=== PATIENT | male | born 1975 | race Caucasian/White ===

== ENCOUNTER 2016-05-16 16:57 | Emergency (ER) | payer SELFPAY ==
[2016-05-16 17:10] VITALS: BP 140/80
[2016-05-16] MEDS ORDERED: Ketorolac 60 MG/2 ML SDV IM ONE (18:09)
--- NOTE | 2016-05-16 18:30 | EDM.PDOC ---
ED HPI RENAL/ - General Chief Complaint: Genitourinary Problem Stated Complaint: BACK PAIN Time Seen by Provider: 05/16/16 17:10 Source of Information: Reports: Patient History Limitations: Reports: No limitations - History of Present Illness INITIAL COMMENTS - FREE TEXT/NARRATIVE: Presents reporting a him a 48 hour history of right flank pain which he reports is a "soreness" and is exacerbated by twisting or bending movements. He denies fever, dysuria or history of back problems. No known injury. He did have a kidney stone about 20 years ago although this pain does not seem similar. - Related Data Allergies/ADRs: Allergies Allergy/AdvReac Type Severity Reaction Status Date / Time No Known Allergies Allergy Verified 05/16/16 17:07 Home Meds: Home Meds Diclofenac Sodium [IJD: Diclofenac Sodium] 75 mg PO .TWICE DAILY W MEALS #20 tab.ec 05/16/16 [Rx] Past Medical History HEENT History: Reports: None Cardiovascular History: Reports: None Respiratory History: Reports: None Gastrointestinal History: Reports: None Genitourinary History: Reports: None Musculoskeletal History: Reports: None Neurological History: Reports: None Psychiatric History: Reports: None Endocrine/Metabolic History: Reports: None Hematologic History: Reports: None Immunologic History: Reports: None Oncologic (Cancer) History: Reports: None Dermatologic History: Reports: None - Infectious Disease History Infectious Disease History: Reports: None - Past Surgical History GI Surgical History: Reports: Appendectomy Social & Family History - Family History Family Medical History: Noncontributory - Tobacco Use Smoking Status *Q: Current Every Day Smoker Years of Tobacco use: 15 Packs/Tins Daily: 0.5 - Caffeine Use Caffeine Use: Reports: Coffee, Soda - Recreational Drug Use Recreational Drug Use: No ED ROS GENERAL - Review of Systems Review Of Systems: See Below ED EXAM, RENAL/ - Physical Exam Exam: See Below General Appearance: alert, no apparent distress Ears: normal external exam Nose: normal inspection Throat/Mouth: Normal inspection Head: atraumatic, normocephalic Neck: normal inspection, full range of motion Respiratory/Chest: no respiratory distress, lungs clear, normal breath sounds Cardiovascular: normal peripheral pulses, regular rate, rhythm, no murmur GI/Abdominal: soft Back Exam: normal inspection, full range of motion. No: CVA tenderness (L), CVA tenderness (R), paraspinal tenderness, vertebral tenderness Extremities: normal inspection, normal range of motion Neurological: alert, oriented, no motor/sensory deficits Psychiatric: normal affect, normal mood Skin Exam: Warm, Dry, Intact, Normal color, No rash Lymphatic: no adenopathy Course - Vital Signs Last Recorded V/S: Last Vital Signs Temp 36.8 C 05/16/16 17:07 Pulse 96 05/16/16 17:07 Resp 16 05/16/16 17:07 BP 140/80 05/16/16 17:07 Pulse Ox 98 05/16/16 17:07 - Orders/Labs/Meds Labs: Laboratory Tests 05/16/16 Range/Units 17:15 Urine Color YELLOW Urine Appearance CLEAR Urine pH 6.0 (5.0-8.0) Ur Specific [place] 1.020 (1.001-1.035) Urine Protein NEGATIVE (NEGATIVE) mg/dL Urine Glucose (UA) NEGATIVE (NEGATIVE) mg/dL Urine Ketones NEGATIVE (NEGATIVE) mg/dL Urine Occult Blood NEGATIVE (NEGATIVE) Urine Nitrite NEGATIVE (NEGATIVE) Urine Bilirubin NEGATIVE (NEGATIVE) Urine Urobilinogen 0.2 (<2.0) EU/dL Ur Leukocyte Esterase NEGATIVE (NEGATIVE) Urine RBC 0-2 (0-2/HPF) Urine WBC 0-1 (0-5/HPF) Ur Epithelial Cells OCCASIONAL (NONE-FEW) Urine Bacteria RARE (NEGATIVE) Urine Mucus LIGHT (NONE-MOD) Meds: Medications Discontinued Medications Generic Name Dose Route Start Last Admin Trade Name Freq PRN Reason Stop Dose Admin Ketorolac Tromethamine 60 mg 05/16/16 18:09 05/16/16 18:17 Toradol IM 05/16/16 18:10 60 mg ONETIME ONE Administration Departure - Departure Time of Disposition: 18:30 Disposition: Home, Self-Care 01 Condition: good Clinical Impression: Muscle strain Referrals: PCP,None [Primary Care Provider] - [facility] [Outside] [facility] [Outside] Forms: ED Department Discharge Additional Instructions: 1. diclofenac 75 mg one twice daily as needed for flank pain 2. return promptly for fever, nausea and unable to keep fluids down, worsening or not improving symptoms 3. followup in primary care clinic
== END 2016-05-16 18:52 | disposition home or self-care (01) ==
LOC: MW.ED 16:57
DX: S39.012A Strain of muscle, fascia and tendon of lower back, initial encounter (principal); Z79.899 Other long term (current) drug therapy; F17.210 Nicotine dependence, cigarettes, uncomplicated; Z90.49 Acquired absence of other specified parts of digestive tract; X50.1XXA Overexertion from prolonged static or awkward postures, initial encounter
CPT/HCPCS: 81001; 96372; 99283; J1885

== ENCOUNTER 2017-05-11 19:46 | Emergency (ER) | payer OTHER ==
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
[2017-05-11 21:18] VITALS: BP 137/82
--- NOTE | 2017-05-12 09:46 | CR ---
EXAM DATE: 05/11/17 PATIENT'S AGE: 42 Patient: NOEMI MARTÍNEZ Facility: [place], [place] Site . Site : 1975 Study: XRay Pelvis [id number]/13/2018 8:37:06 PM Ordering Physician: Luis Armando Davison Final Report: INDICATION: Pain with no history of acute trauma. History of bilateral pelvic fractures TECHNIQUE: Two views of the pelvis COMPARISON: None FINDINGS: Bones: Alignment is normal. No the fractures appear remote bilateral inferior pubic ramus fractures. Joint spaces: Unremarkable. Soft tissues: Unremarkable. IMPRESSION: Remote bilateral inferior pubic rami fractures otherwise unremarkable two-view pelvis. Dictated by Ugo Bhatt MD @ 05/11/2017 8:48:01 PM Dictated by: Ugo Bhatt MD @ 05/11/2017 20:48:11 (Electronic Signature) Report Signed by Proxy. ROMINA
== END 2017-05-11 21:14 | disposition home or self-care (01) ==
LOC: MW.ED 19:46
DX: M25.551 Pain in right hip (principal); M54.31 Sciatica, right side; F17.210 Nicotine dependence, cigarettes, uncomplicated
CPT/HCPCS: 72170; 96372; 99283; J2360; 99284

== ENCOUNTER 2017-05-18 18:42 | Emergency (ER) | payer OTHER ==
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
[2017-05-18] MEDS ORDERED: Levofloxacin/Dextrose 5%-Water 750 MG in Premix Bag 1 BAG IV ONE (19:08)
[2017-05-18] MEDS ORDERED: Ketorolac 60 MG/2 ML SDV IM ONE (20:02)
[2017-05-18 20:17] VITALS: BP 130/70
--- NOTE | 2017-05-19 10:37 | CR ---
EXAM DATE: 05/18/17 PATIENT'S AGE: 42 Patient: NOEMI MARTÍNEZ Facility: [place], [place] Site . Site : 1975 Study: XRay Chest ribs wo chest [id number]/20/2018 7:30:19 PM Ordering Physician: Doctor Morales Final Report: INDICATION: INDICATION:Fall TECHNIQUE: Right ribs 3 views. COMPARISON: None FINDINGS: Detailed oblique images of the right ribs demonstrate no fractures or bone lesions. Visualized portions of the right lung and pleural space are clear. IMPRESSION: Unremarkable right ribs. Dictated by Gretchen Villalpando MD @ May 18 2017 7:57PM (Electronic Signature) Report Signed by Proxy. ROMINA
== END 2017-05-18 20:13 | disposition home or self-care (01) ==
LOC: MW.ED 18:42
DX: S20.211A Contusion of right front wall of thorax, initial encounter (principal); F17.210 Nicotine dependence, cigarettes, uncomplicated; Z79.899 Other long term (current) drug therapy; W00.9XXA Unspecified fall due to ice and snow, initial encounter
CPT/HCPCS: 71100; 96372; 99284; J1885; 99283

== ENCOUNTER 2017-11-17 08:06 | Emergency (ER) | payer OTHER ==
--- NOTE | 2017-11-17 08:14 | EDM.PDOC ---
ED HPI GENERAL MEDICAL PROBLEM - General Chief Complaint: ENT Problem Stated Complaint: POSSIBLE BROKEN NOSE Time Seen by Provider: 11/17/17 08:14 Source of Information: Reports: Patient - History of Present Illness INITIAL COMMENTS - FREE TEXT/NARRATIVE: HISTORY AND PHYSICAL: History of present illness: [Patient was head butted by his below mass to service dog, this did not occur on aggression from the PET. The patient had a potato chip in his mouth and was going to feed the dog and the dog jumped up to get the chip and they struck nose is patient resulted in epistaxis and nasal bridge is tender he does have some small chip fractures on the distal nasal bones on x-ray No loss of consciousness no fever nausea vomiting chills sweats epistaxis has resolved ] Review of systems: As per history of present illness and below otherwise all systems reviewed and negative. Past medical history: As per history of present illness and as reviewed below otherwise noncontributory. Surgical history: As per history of present illness and as reviewed below otherwise noncontributory. Social history: No reported history of drug or alcohol abuse. Family history: As per history of present illness and as reviewed below otherwise noncontributory. Physical exam: HEENT: Atraumatic, normocephalic, pupils reactive, negative for conjunctival pallor or scleral icterus, mucous membranes moist, throat clear, neck supple, nontender, trachea midline. and in the nares no active bleeding tender over the nasal bridge no significant displacement Lungs: Clear to auscultation, breath sounds equal bilaterally, chest nontender. Heart: S1S2, regular, negative for clicks, rubs, or JVD. Abdomen: Soft, nondistended, nontender. Negative for masses or hepatosplenomegaly. Negative for costovertebral tenderness. Pelvis: Stable nontender. Genitourinary: Deferred. Rectal: Deferred. Extremities: Atraumatic, negative for cords or calf pain. Neurovascular unremarkable. Neuro: Awake, alert, oriented. Cranial nerves II through XII unremarkable. Cerebellum unremarkable. Motor and sensory unremarkable throughout. Exam nonfocal. Diagnostics: [ nasal bones 3 views ] Therapeutics: [] tramadol Ibuprofen Ice follow-up with Dr. Das when necessary Impression: [] nasal fractures Definitive disposition and diagnosis as appropriate pending reevaluation and review of above. nose Pain Score (Numeric/FACES): 9 - Related Data Allergies Allergy/AdvReac Type Severity Reaction Status Date / Time No Known Allergies Allergy Verified 11/17/17 08:11 Home Meds: Home Meds Gabapentin [Gralise] 600 mg PO BID 05/18/17 [History] Past Medical History HEENT History: Reports: None Cardiovascular History: Reports: None Respiratory History: Reports: None Gastrointestinal History: Reports: None Genitourinary History: Reports: None Musculoskeletal History: Reports: None Other Musculoskeletal History: Spinal Injury Neurological History: Reports: None Psychiatric History: Reports: None Endocrine/Metabolic History: Reports: None Hematologic History: Reports: None Immunologic History: Reports: None Oncologic (Cancer) History: Reports: None Dermatologic History: Reports: None - Infectious Disease History Infectious Disease History: Reports: None - Past Surgical History GI Surgical History: Reports: Appendectomy Social & Family History - Family History Family Medical History: Noncontributory - Caffeine Use Caffeine Use: Reports: Coffee, Soda ED ROS GENERAL - Review of Systems Review Of Systems: See Below ED EXAM, GENERAL - Physical Exam Exam: See Below Course - Vital Signs Last Recorded V/S: Last Vital Signs Temp 97.2 F 11/17/17 08:12 Pulse 91 11/17/17 08:12 Resp 18 11/17/17 08:12 BP 155/82 H 11/17/17 08:12 Pulse Ox 96 11/17/17 08:12 Departure - Departure Time of Disposition: 09:01 Disposition: Home, Self-Care 01 Condition: Good Clinical Impression: Nasal fracture - Discharge Information Referrals: Esmer Joseph [employer] [Primary Care Provider] - Forms: ED Department Discharge Additional Instructions: Medication as prescribed Rest ice ibuprofen as discussed Return if symptoms persist or worsen Follow-up with plastic surgery in 10-14 days or as needed [facility] - Plastic Surgery Professional [address], [address] [place] [address] The following information is given to patients seen in the emergency department who are being discharged to home. This information is to outline your options for follow-up care. We provide all patients seen in our emergency department with a follow-up referral. The need for follow-up, as well as the timing and circumstances, are variable depending upon the specifics of your emergency department visit. If you don't have a primary care physician on staff, we will provide you with a referral. We always advise you to contact your personal physician following an emergency department visit to inform them of the circumstance of the visit and for follow-up with them and/or the need for any referrals to a consulting specialist. The emergency department will also refer you to a specialist when appropriate. This referral assures that you have the opportunity for follow-up care with a specialist. All of these measure are taken in an effort to provide you with optimal care, which includes your follow-up. Under all circumstances we always encourage you to contact your private physician who remains a resource for coordinating your care. When calling for follow-up care, please make the office aware that this follow-up is from your recent emergency room visit. If for any reason you are refused follow-up, please contact the [facility] emergency department at and asked to speak to the emergency department charge nurse.
[2017-11-17 08:20] VITALS: BP 155/82
--- NOTE | 2017-11-17 08:46 | CR ---
EXAMINATION: Nasal bones HISTORY: Pain COMPARISON: None TECHNIQUE: 3 views FINDINGS/IMPRESSION: Tiny chip fracture off the distal edge of the nasal bones, nondisplaced. Remaini ng visualized osseous structures in bone mineralization appear intact. Frontal and maxillary sinuses are patent.
== END 2017-11-17 09:09 | disposition home or self-care (01) ==
LOC: MW.ED 08:06
DX: S02.2XXA Fracture of nasal bones, initial encounter for closed fracture (principal); W54.1XXA Struck by dog, initial encounter
CPT/HCPCS: 70160; 70160-26; 99283